=== PATIENT | male | born 1995 | race African-American/Black ===

== ENCOUNTER 2019-01-30 08:54 | Emergency (ER) | payer SELFPAY ==
[2019-01-30 09:03] VITALS: BP 131/67
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
== END 2019-01-30 09:53 | disposition home or self-care (01) ==
LOC: ER 08:54
DX: Z71.1 Person with feared health complaint in whom no diagnosis is made (principal); X08.8XXA Exposure to other specified smoke, fire and flames, initial encounter
CPT/HCPCS: 99283